=== PATIENT | male | born 1980 | race Two or more races ===

== ENCOUNTER 2018-11-21 21:04 | Emergency (ER) | payer OTHER | END 2018-11-21 21:37 | disposition home or self-care (01) | LOC: NAV ERS 21:04 | DX: Z02.89 Encounter for other administrative examinations (principal); E11.9 Type 2 diabetes mellitus without complications; E78.5 Hyperlipidemia, unspecified; I10 Essential (primary) hypertension; Z79.4 Long term (current) use of insulin; Z79.899 Other long term (current) drug therapy | CPT/HCPCS: 99283 ==